=== PATIENT | female | born 1990 | race African-American/Black ===

== ENCOUNTER 2025-08-31 08:57 | Outpatient (REF) | payer OTHER, SELFPAY ==
--- OUTSIDE RECORDS SUMMARY | 2025-08-31 19:09 | XMS_ITS | Clinical Summary ---
Author Organization [facility] Address [address] [place] [address] Care Team Providers Care Food Processing Scientist Name Role Phone No Pcp, Per Patient Primary Care Provider Unavai lable Allergies No known active allergies Medications methIMAzole (Tapazole) 5 mg tablet Take by mouth. Active Active Problems Problem Noted Date Diagnosed Date Graves disease 07/01/2023 Thyroid receptor antibody positive 07/01/2023 Hyperthyroidism 05/27/2023 Social History Tobacco Use Types Packs/Day Years Used Date Smoking Tobacco: Never Smokeless Tobacco: Never Tobacco Cessation:Counseling Given: Not Answered [facility] Utilities Answer Date Recorded In the past 12 months has th e electric, gas, oil, or water company threatened to shut off services in your home? No 12/17/2024 Overall Financial Resource Strain (CARDIA) Answe r Date Recorded How hard is it for you to pa y for the very basics like food, housing, medical care, and heating? Somewhat hard 12/17/2024 Hunger Vital Sign Answer Date Recorded Within the past 12 months, y ou worried that your food would run out before you got the money to buy more. Patient declined Ran Out of Food in the Last Year Not on file 12/17/2024 PRAPARE - Transportation Answer Date Re corded In the past 12 months, has l ack of transportation kept you from medical appointments or from getting medications? No 11/26 In the past 12 months, has l ack of transportation kept you from meetings, work, or from getting things needed for daily living? No 12/17/2024 Housing Stability Vital Sign Answer Ricki e Recorded Unable to Pay for Housing in the Last Year Not o n file 12/17/2024 Number of Times Moved in the Last Year Not on fi le 12/17/2024 At any time in the past 12 m [facility], were you homeless or living in a fci (including now)? No 12/17/2024 Comments No Sex and Gender Information Value Date Recorded Sex Assigned at Female 11/08/2024 4:16 PM EST Legal Sex Female 4:14 PM EST Gender Identity Female 11/08/2024 4:16 PM EST Sexual Orientation Choose not to disclose 2024 4:16 PM EST Last Filed Vital Signs Vital Sign Reading Time Taken Comments Blood Pressure 124/82 12/18/2024 2:28 PM EDT Pulse 79 11/12/2024 2:57 PM EST Temperature 36.8 C (98.2 F) 11/12/2024 2:57 PM EST Respiratory Rate 16 11/12/2024 2:57 PM EST Oxygen Saturation 98% 11/12/2024 2:57 PM EST Inhaled Oxygen Concentration - - Weight 84.8 kg (187 lb) 12/18/2024 2:28 PM EDT Height - - Body Mass Index - - Plan of Treatment Health Maintenance Due Date Last Done Comments HIV Screening 1990 MMR Vaccines (1 of 1 - Stand ray series) 1991 Varicella Vaccines (1 of 2 - 13+ 2-dose series) 2003 Hepatitis C Screening 02/03/2008 DTaP/Tdap/Td Vaccines (1 - Tdap) 2009 Hepatitis B Vaccines (1 of 3 - 19+ 3-dose series) 2009 Pap Smear 2011 Cervical Cancer Screening 02/03/2020 HPV/Cotest 02/03/2020 Depression Screening 09/27/2024 COVID-19 Vaccine ( - 2024-2 6 season) 2025 Influenza Vaccine (#1) 2025 HIB Vaccines Aged Out No longer eligi ble based on patient's age to complete this topic HPV Vaccines (No Doses Required) Completed Hepatitis A Vaccines Aged Out No long er eligible based on patient's age to complete this topic IPV Vaccines Aged Out No longer eligi ble based on patient's age to complete this topic Meningococcal B Vaccine Aged Out No l onger eligible based on patient's age to complete this topic Meningococcal Vaccine Aged Out No cherie maine eligible based on patient's age to complete this topic Pneumococcal Vaccine: Pediat rics (0 to 5 Years) and At-Risk Patients (6 to 49 Years) Aged Out No longer eligible b ased on patient's age to complete this topic Rotavirus Vaccines Aged Out No longer eligible based on patient's age to complete this topic Insurance [facility] Care Teams Food Processing Scientist Relationship Specialty Start Date End Date No Pcp, Per Patient LIANG PCP - General Tractor Driver 11/08/24
[2025-09-01 02:25] LABS: Bacterial Vaginosis PCR POSITIVE (Negative); Candida Group PCR NOT DETECTED (Not Detect); Candida glab krusei PCR NOT DETECTED (Not Detect); Trichomonas vaginalis PCR NOT DETECTED (Not Detect)
[2025-09-01 02:56] LABS: CT PCR NOT DETECTED (Not Detect.); NG PCR NOT DETECTED (Not Detect.)
== END 2025-08-31 08:58 | disposition home or self-care (01) ==
LOC: HO.LNP 08:57
PROVIDERS: PCP Internal Medicine; Visit Provider Advanced Practice Midwife
DX: Z01.419 Encounter for gynecological examination (general) (routine) without abnormal findings (principal); Z20.2 Contact with and (suspected) exposure to infections with a predominantly sexual mode of transmission; Z11.51 Encounter for screening for human papillomavirus (HPV); E05.90 Thyrotoxicosis, unspecified without thyrotoxic crisis or storm; Z31.89 Encounter for other procreative management; Z86.018 Personal history of other benign neoplasm
CPT/HCPCS: 81515; 87491; 87591; 87626; 88175